=== PATIENT | male | born 1975 | race Two or more races ===

== ENCOUNTER 2020-03-02 07:27 | Emergency (ER) | payer OTHER ==
[~2020-03-02] VITALS: Ht 157.5 cm; Wt 66.2 kg
[2020-03-02 07:31] VITALS: BP 134/63
--- NOTE | 2020-03-02 07:52 | NUR ---
SUTURES REMOVED. Patient discharged to home in stable condition. Written and verbal after care instructions given. Patient verbalizes understanding of instruction.
== END 2020-03-02 07:52 | disposition home or self-care (01) ==
LOC: ER 07:27
DX: S61.411D Laceration without foreign body of right hand, subsequent encounter (principal); J45.909 Unspecified asthma, uncomplicated; D64.9 Anemia, unspecified; Z88.0 Allergy status to penicillin; Z88.6 Allergy status to analgesic agent; X58.XXXD Exposure to other specified factors, subsequent encounter